=== PATIENT | male | born 1995 | race African-American/Black ===

== ENCOUNTER 2020-03-06 14:00 | Outpatient (CLI) | payer OTHER ==
--- NOTE | 2020-03-06 14:22 | RAD ---
EXAM: XR Knee Rt 3 View PROVIDED CLINICAL HISTORY: Pain FINDINGS: There is no evidence for fracture or other acute osseous abnormality. Alignment appears anatomic. Lisa nt spaces appear preserved. IMPRESSION: No evidence for an acute osseous abnormality or significant arthropathy.
== END 2020-03-06 14:01 | disposition home or self-care (01) ==
LOC: MADRAD 14:00
DX: M19.90 Unspecified osteoarthritis, unspecified site (principal)